=== PATIENT | female | born 1970 | race American Indian/Alaskan Native ===

== ENCOUNTER 2019-03-11 23:24 | Inpatient (IN) | payer OTHER ==
[2019-03-12 00:55] LABS: Bilirubin,Urine NEG (Negative); Blood,Urine NEG (Negative); Color,Urine Yellow (Yellow); Mucus,Urine FEW /HPF; Protein,Urine <15 mg/dL mg/dL (Negative); Urobilinogen,Urine < 2.0 mg/dL (<2.0); WBC,Urine < 1.0 /HPF (0.0-6.0)
[2019-03-12] MEDS ORDERED: TYLENOL ONE (01:00)
[2019-03-12 01:06] LABS: HCG Qualitative,Urine Negative (Negative)
[2019-03-12] MEDS: NACL 0.9% 1000 ML 1,000 ML IV ONE ×2 (01:08→01:57)
[2019-03-12] MEDS ORDERED: TYLENOL PO ONE (01:09)
[2019-03-12] MEDS ORDERED: NACL 0.9% 1000 ML IV ONE (01:35)
[2019-03-12] MEDS ORDERED: ZOSYN/NS 4.5GM/100ML 4.5 GM/100 ML VIAL IV ONE ×2 (01:37→06:29)
--- NOTE | 2019-03-12 01:42 | Emergency Department Report ---
- General Chief complaint: Dizziness Stated complaint: DIZZINESS/WEAKNESS Time Seen by Provider: 03/12/19 00:21 Source: patient, family Mode of arrival: Ambulatory Limitations: No Limitations - History of Present Illness Initial comments: 48-year-old female presents to ED with generalized weakness and chills that started tonight. Patient also reports history of constipation, and states that she often strains during defecation and notices drops of blood in her stool. Patient states today there was more blood than usual during her bowel movement. Patient denies headache, nausea, vomiting, cough, sore throat, diarrhea. Patient reports very mild lower abdominal pain, denies dysuria or frequency, vaginal bleeding or discharge. MD Complaint: generalized weakness -: This evening Location: generalized Severity: moderate Severity scale (0 -10): 0 Consistency: constant Improves with: none Worsens with: none Associated Symptoms: fever/chills. denies: chest pain, dark stools, dysuria, headaches, nausea/vomiting, myalgias, shortness of breath, syncope - Related Data Allergies Allergy/AdvReac Type Severity Reaction Status Date / Time No Known Allergies Allergy Unverified 03/11/19 23:50 ED Review of Systems ROS: Stated complaint: DIZZINESS/WEAKNESS Other details as noted in HPI Comment: All other systems reviewed and negative Constitutional: chills, fever ENT: denies: throat pain Respiratory: denies: cough, shortness of breath Cardiovascular: denies: chest pain Gastrointestinal: abdominal pain, constipation, hematochezia. denies: nausea, vomiting, diarrhea Genitourinary: denies: dysuria, frequency, discharge Neurological: denies: headache ED Past Medical Hx - Past Medical History Previous Medical History?: Yes Additional medical history: Anemia - Surgical History Past Surgical History?: Yes Additional Surgical History: Tubal Ligation, Back - Social History Smoking Status: Never Smoker Substance Use Type: None ED Physical Exam - General Limitations: No Limitations General appearance: alert, in no apparent distress - Head Head exam: Present: atraumatic, normocephalic - Eye Eye exam: Present: normal appearance, PERRL, EOMI - ENT ENT exam: Present: mucous membranes moist - Neck Neck exam: Present: normal inspection - Respiratory Respiratory exam: Present: normal lung sounds bilaterally. Absent: respiratory distress - Cardiovascular Cardiovascular Exam: Present: normal rhythm, tachycardia - GI/Abdominal GI/Abdominal exam: Present: soft. Absent: distended, tenderness - Rectal Rectal exam: Present: other (brown stool with a drop of bright red blood present) - Extremities Exam Extremities exam: Present: normal inspection - Back Exam Back exam: Present: normal inspection, full ROM - Neurological Exam Neurological exam: Present: alert, oriented X3, CN II-XII intact. Absent: motor sensory deficit - Psychiatric Psychiatric exam: Present: normal affect, normal mood - Skin Skin exam: Present: warm, dry, intact, normal color. Absent: rash ED Course Vital Signs 03/11/19 03/12/19 03/12/19 23:37 01:00 01:10 Temperature 98.6 F 100.9 F H Pulse Rate 103 H 91 H Respiratory 18 25 H Rate Blood Pressure 108/67 93/52 O2 Sat by Pulse 96 Oximetry 03/12/19 03/12/19 03/12/19 01:46 02:00 03:00 Temperature Pulse Rate 95 H 96 H 88 Respiratory 28 H 24 24 Rate Blood Pressure 93/60 97/64 97/64 O2 Sat by Pulse 98 97 Oximetry 03/12/19 04:00 Temperature Pulse Rate 76 Respiratory 14 Rate Blood Pressure 102/66 O2 Sat by Pulse Oximetry ED Medical Decision Making - Lab Data Result diagrams: 03/11/19 00:00 03/11/19 00:00 - Radiology Data Radiology results: report reviewed, image reviewed - Medical Decision Making 48-year-old female presents to ED with fever, chills, generalized weakness. Patient found to be febrile with a temp of 100.9, also hypotensive systolic blood pressures in the 90s. WBCs 13.9. Lactic acid is normal. Patient reported mild abdominal pain, however. UA is normal, also CT abdomen and pelvis is unremarkable for any acute findings. Chest x-ray is also normal. Patient reported some rectal bleeding with straining during hard stool, however hemoglobin is normal, and rectal exam did not reveal any significant blood present, only small drop. Blood and urine cultures were drawn due to fever and hypotension. Patient given one dose of Zosyn. Blood pressure has improved somewhat with fluid administration. Current blood pressure of 102/66. Will admit to hospitalist for further management. Critical care attestation.: If time is entered above; I have spent that time in minutes in the direct care of this critically ill patient, excluding procedure time. ED Disposition Clinical Impression: Fever, Hypotension Disposition: DC-09 OP ADMIT IP TO THIS HOSP Is pt being admited?: Yes Condition: Stable Referrals: JOSÉ MIGUEL NEIL MD [Primary Care Provider] - 3-5 Days Time of Disposition: 03:46
[2019-03-12 02:22] LABS: Alanine Aminotransferase 22 units/L (7-56); Bilirubin,Direct < 0.2 mg/dL (0-0.2)
--- NOTE | 2019-03-12 02:51 | Cat Scan Report ---
CT ABDOMEN AND PELVIS WITH CONTRAST HISTORY: fever, abdominal pain, weakness, dizziness. COMPARISON: None. TECHNIQUE: CT images of the abdomen and pelvis were obtained following administration of intravenous contrast. All CT scans at this location are performed using CT dose reduction for ALARA by means of automated exposure control. CONTRAST: 100 ml of intravenous contrast administered. FINDINGS: Lungs/bones: The lung bases are clear. There is no acute osseous abnormality. Postoperative changes are seen in the lumbosacral spine with no gross hardware complication identified. Abdomen/pelvis: The liver, gallbladder, spleen, pancreas, adrenals, left kidney, and proximal GI tra ct appear unremarkable. The right kidney is lobulated and there is a parenchymal calcification measur ing 2 mm in the lower pole. The urinary bladder and reproductive organs are unremarkable with no pelvic free fluid and no acute c olonic abnormality identified. The terminal ileum and appendix appear unremarkable. IMPRESSION: 1. No acute abnormality identified. 2. Incidental findings as above. Signer Name: Frank Win MD Signed: 03/12/2019 2:46 AM Workstation Name: [id number]
[2019-03-12] MEDS ORDERED: TYLENOL PO PRN (03:53)
[2019-03-12] MEDS ORDERED: ZOFRAN IV PRN (03:53)
[2019-03-12] MEDS ORDERED: PERCOCET 5/325 PO PRN (03:53)
[2019-03-12] MEDS ORDERED: SODIUM CHLORIDE FLUSH SYRINGE 10 ML IV PRN (03:53)
--- NOTE | 2019-03-12 04:07 | History and Physical Report ---
<SOSA DAVIES - Last Filed: 03/12/19 04:48> History of Present Illness Date of examination: 03/12/19 Date of admission: 03/09/2019 Chief complaint: weakness, fever and chills History of present illness: Patient is a 48-year-old female with no prior PMHx who presents to the ER with complaints of dizziness, fever and chills 2 hours prior to coming to the ER. Patient also reported constipation and streaks of blood in her stool every time she has a BM but states that the bleeding was worse today. Patient reports fever and chills, she denies any abdominal pain, denies headache, denies recent traveling, denies ill-contacts, denies any nausea or vomiting. In the ER patient was started on antibiotic and admitted for further evaluation and treatments. Past History Past Medical History: other (constipation) Past Surgical History: Other (tubal ligation and back surgery) Social history: no significant social history Family history: no significant family history Medications and Allergies Allergies Allergy/AdvReac Type Severity Reaction Status Date / Time No Known Allergies Allergy Unverified 03/11/19 23:50 Active Meds: Active Medications Acetaminophen (Tylenol) 650 mg PO Q4H PRN PRN Reason: Pain MILD(1-3)/Fever >100.5/CORRALES Enoxaparin Sodium (Lovenox) 40 mg SUB-Q QDAY [facility] Famotidine (Pepcid) 20 mg IV BID [facility] Sodium Chloride (Nacl 0.9% 1000 Ml) 1,000 mls @ 100 mls/hr IV DIRECT [facility] Ondansetron HCl (Zofran) 4 mg IV Q8H PRN PRN Reason: Nausea And Vomiting Oxycodone/Acetaminophen (Percocet 5/325) 1 tab PO Q6H PRN PRN Reason: Pain, Moderate (4-6) Sodium Chloride (Sodium Chloride Flush Syringe 10 Ml) 10 ml IV BID [facility] Sodium Chloride (Sodium Chloride Flush Syringe 10 Ml) 10 ml IV PRN PRN PRN Reason: LINE FLUSH Review of Systems Constitutional: fever, chills, weakness Rectal: bleeding Exam - Constitutional Vitals: Temp Pulse Resp BP Pulse Ox 100.9 F H 96 H 24 97/64 97 03/12/19 01:10 03/12/19 02:00 03/12/19 02:00 03/12/19 02:00 03/12/19 02:00 General appearance: Present: no acute distress - EENT Eyes: Present: EOM intact ENT: hearing intact - Neck Neck: Present: normal ROM - Respiratory Respiratory effort: normal Respiratory: bilateral: CTA - Cardiovascular Rhythm: regular Heart Sounds: Present: S1 & S2 - Extremities Extremities: no ischemia, No edema Peripheral Pulses: within normal limits - Abdominal General gastrointestinal: Present: soft, non-tender, non-distended Female genitourinary: Present: deferred - Rectal Rectal Exam: deferred - Integumentary Integumentary: Present: clear, warm, dry - Musculoskeletal Musculoskeletal: strength equal bilaterally - Psychiatric Psychiatric: cooperative - Neurologic Neurologic: moves all extremities Results - Labs CBC & Chem 7: 03/11/19 00:00 03/11/19 00:00 Labs: Laboratory Last Values WBC 13.9 K/mm3 (4.5-11.0) H 03/11/19 00:00 RBC 3.84 M/mm3 (3.65-5.03) 03/11/19 00:00 Hgb 11.2 gm/dl (10.1-14.3) 03/11/19 00:00 Hct 34.0 % (30.3-42.9) 03/11/19 00:00 MCV 89 fl (79-97) 03/11/19 00:00 MCH 29 pg (28-32) 03/11/19 00:00 MCHC 33 % (30-34) 03/11/19 00:00 RDW 14.7 % (13.2-15.2) 03/11/19 00:00 Plt Count 277 K/mm3 (140-440) 03/11/19 00:00 Lymph % (Auto) 2.7 % (13.4-35.0) L 03/11/19 00:00 [place] % (Auto) 6.2 % (0.0-7.3) 03/11/19 00:00 Eos % (Auto) 0.1 % (0.0-4.3) 03/11/19 00:00 Baso % (Auto) 1.4 % (0.0-1.8) 03/11/19 00:00 Lymph # 0.4 K/mm3 (1.2-5.4) L 03/11/19 00:00 [place] # 0.9 K/mm3 (0.0-0.8) H 03/11/19 00:00 Eos # 0.0 K/mm3 (0.0-0.4) 03/11/19 00:00 Baso # 0.2 K/mm3 (0.0-0.1) H 03/11/19 00:00 Seg Neutrophils % 89.6 % (40.0-70.0) H 03/11/19 00:00 Seg Neutrophils # 12.5 K/mm3 (1.8-7.7) H 03/11/19 00:00 Sodium 137 mmol/L (137-145) 03/11/19 00:00 Potassium 3.9 mmol/L (3.6-5.0) 03/11/19 00:00 Chloride 100.6 mmol/L (98-107) 03/11/19 00:00 Carbon Dioxide 24 mmol/L (22-30) 03/11/19 00:00 16 mmol/L 03/11/19 00:00 BUN 13 mg/dL (7-17) 03/11/19 00:00 0.8 mg/dL (0.7-1.2) 03/11/19 00:00 Estimated GFR > 60 ml/min 03/11/19 00:00 16 % 03/11/19 00:00 Glucose 105 mg/dL (65-100) H 03/11/19 00:00 Lactic Acid 1.10 mmol/L (0.7-2.0) 03/12/19 01:47 Calcium 9.4 mg/dL (8.4-10.2) 03/11/19 00:00 0.20 mg/dL (0.1-1.2) 03/12/19 01:47 < 0.2 mg/dL (0-0.2) 03/12/19 01:47 0.0 mg/dL 03/12/19 01:47 AST 25 units/L (5-40) 03/12/19 01:47 ALT 22 units/L (7-56) 03/12/19 01:47 65 units/L (35-129) 03/12/19 01:47 7.1 g/dL (6.3-8.2) 03/12/19 01:47 4.0 g/dL (3.9-5) 03/12/19 01:47 1.3 % 03/12/19 01:47 Yellow (Yellow) 03/12/19 Unknown Clear (Clear) 03/12/19 Unknown 5.0 (5.0-7.0) 03/12/19 Unknown Ur Specific [place] 1.012 (1.003-1.030) 03/12/19 Unknown <15 mg/dl mg/dL (Negative) 03/12/19 Unknown Neg mg/dL (Negative) 03/12/19 Unknown Neg mg/dL (Negative) 03/12/19 Unknown Neg (Negative) 03/12/19 Unknown Neg (Negative) 03/12/19 Unknown Neg (Negative) 03/12/19 Unknown < 2.0 mg/dL (<2.0) 03/12/19 Unknown Ur Leukocyte Esterase Neg (Negative) 03/12/19 Unknown < 1.0 /HPF (0.0-6.0) 03/12/19 Unknown 1.0 /HPF (0.0-6.0) 03/12/19 Unknown U Epithel Cells (Auto) 4.0 /HPF (0-13.0) 03/12/19 Unknown Few /HPF 03/12/19 Unknown Urine HCG, Qual Negative (Negative) 03/12/19 Unknown Assessment and Plan Assessment and plan: 1. Acute febrile illness 2. Dizziness/weakness 3. Rectal bleeding 4. Chronic constipation 5. Mild leukocytosis Plan: Pt is admitted to [facility] Continue Zosin q8hrs IVF for hydration Miralax daily for constipation Consult GI for evaluation Blood culture pending Plan of care discussed with pt. voiced understanding Pt's condition and plan of care d/w Dr Diez Advance Directives: Yes VTE prophylaxis?: Mechanical Plan of care discussed with patient/family: Yes <OLU DIEZ - Last Filed: 03/12/19 06:00> History of Present Illness Date of admission: 03/12/19 03:53 Medications and Allergies Active Meds: Active Medications Acetaminophen (Tylenol) 650 mg PO Q4H PRN PRN Reason: Pain MILD(1-3)/Fever >100.5/CORRALES Famotidine (Pepcid) 20 mg IV BID [facility] Sodium Chloride (Nacl 0.9% 1000 Ml) 1,000 mls @ 100 mls/hr IV DIRECT [facility] Piperacillin Sod/Tazobactam Sod (Zosyn/Ns 4.5gm/100ml) 4.5 gm in 100 mls @ 200 mls/hr IV Q8HR [facility]; Protocol Ondansetron HCl (Zofran) 4 mg IV Q8H PRN PRN Reason: Nausea And Vomiting Oxycodone/Acetaminophen (Percocet 5/325) 1 tab PO Q6H PRN PRN Reason: Pain, Moderate (4-6) Sodium Chloride (Sodium Chloride Flush Syringe 10 Ml) 10 ml IV BID [facility] Sodium Chloride (Sodium Chloride Flush Syringe 10 Ml) 10 ml IV PRN PRN PRN Reason: LINE FLUSH Exam - Constitutional Vitals: Temp Pulse Resp BP Pulse Ox 100.9 F H 76 14 102/66 97 03/12/19 01:10 03/12/19 04:00 03/12/19 04:00 03/12/19 04:00 03/12/19 02:00 Results - Labs CBC & Chem 7: 03/11/19 00:00 03/11/19 00:00 Labs: Laboratory Last Values WBC 13.9 K/mm3 (4.5-11.0) H 03/11/19 00:00 RBC 3.84 M/mm3 (3.65-5.03) 03/11/19 00:00 Hgb 11.2 gm/dl (10.1-14.3) 03/11/19 00:00 Hct 34.0 % (30.3-42.9) 03/11/19 00:00 MCV 89 fl (79-97) 03/11/19 00:00 MCH 29 pg (28-32) 03/11/19 00:00 MCHC 33 % (30-34) 03/11/19 00:00 RDW 14.7 % (13.2-15.2) 03/11/19 00:00 Plt Count 277 K/mm3 (140-440) 03/11/19 00:00 Lymph % (Auto) 2.7 % (13.4-35.0) L 03/11/19 00:00 [place] % (Auto) 6.2 % (0.0-7.3) 03/11/19 00:00 Eos % (Auto) 0.1 % (0.0-4.3) 03/11/19 00:00 Baso % (Auto) 1.4 % (0.0-1.8) 03/11/19 00:00 Lymph # 0.4 K/mm3 (1.2-5.4) L 03/11/19 00:00 [place] # 0.9 K/mm3 (0.0-0.8) H 03/11/19 00:00 Eos # 0.0 K/mm3 (0.0-0.4) 03/11/19 00:00 Baso # 0.2 K/mm3 (0.0-0.1) H 03/11/19 00:00 Seg Neutrophils % 89.6 % (40.0-70.0) H 03/11/19 00:00 Seg Neutrophils # 12.5 K/mm3 (1.8-7.7) H 03/11/19 00:00 Sodium 137 mmol/L (137-145) 03/11/19 00:00 Potassium 3.9 mmol/L (3.6-5.0) 03/11/19 00:00 Chloride 100.6 mmol/L (98-107) 03/11/19 00:00 Carbon Dioxide 24 mmol/L (22-30) 03/11/19 00:00 16 mmol/L 03/11/19 00:00 BUN 13 mg/dL (7-17) 03/11/19 00:00 0.8 mg/dL (0.7-1.2) 03/11/19 00:00 Estimated GFR > 60 ml/min 03/11/19 00:00 16 % 03/11/19 00:00 Glucose 105 mg/dL (65-100) H 03/11/19 00:00 Lactic Acid 1.10 mmol/L (0.7-2.0) 03/12/19 01:47 Calcium 9.4 mg/dL (8.4-10.2) 03/11/19 00:00 0.20 mg/dL (0.1-1.2) 03/12/19 01:47 < 0.2 mg/dL (0-0.2) 03/12/19 01:47 0.0 mg/dL 03/12/19 01:47 AST 25 units/L (5-40) 03/12/19 01:47 ALT 22 units/L (7-56) 03/12/19 01:47 65 units/L (35-129) 03/12/19 01:47 7.1 g/dL (6.3-8.2) 03/12/19 01:47 4.0 g/dL (3.9-5) 03/12/19 01:47 1.3 % 03/12/19 01:47 Yellow (Yellow) 03/12/19 Unknown Clear (Clear) 03/12/19 Unknown 5.0 (5.0-7.0) 03/12/19 Unknown Ur Specific [place] 1.012 (1.003-1.030) 03/12/19 Unknown <15 mg/dl mg/dL (Negative) 03/12/19 Unknown Neg mg/dL (Negative) 03/12/19 Unknown Neg mg/dL (Negative) 03/12/19 Unknown Neg (Negative) 03/12/19 Unknown Neg (Negative) 03/12/19 Unknown Neg (Negative) 03/12/19 Unknown < 2.0 mg/dL (<2.0) 03/12/19 Unknown Ur Leukocyte Esterase Neg (Negative) 03/12/19 Unknown < 1.0 /HPF (0.0-6.0) 03/12/19 Unknown 1.0 /HPF (0.0-6.0) 03/12/19 Unknown U Epithel Cells (Auto) 4.0 /HPF (0-13.0) 03/12/19 Unknown Few /HPF 03/12/19 Unknown Urine HCG, Qual Negative (Negative) 03/12/19 Unknown Assessment and Plan Assessment and plan: 48 -year-old woman in no medical problems comes emergency room complaining of fever chills, generalized weakness. No source of infection,continue zosyn, blood pressure is improved from the hypotensive range. GI consult for BPR, hemorroids
--- NOTE | 2019-03-12 04:16 | XRay Report ---
CHEST 1 VIEW INDICATION: fever. Fever and chills for the past 2 hours. COMPARISON: None FINDINGS: Support devices: None. Heart: Within normal limits. Lungs/Pleura: No acute air space or interstitial disease. Additional findings: None. IMPRESSION: 1. No acute findings. Signer Name: Frank Win MD Signed: 03/12/2019 4:12 AM Workstation Name: [email or web address]
[2019-03-12] MEDS ORDERED: ZOSYN/NS 4.5GM/100ML 4.5 GM/100 ML VIAL IV SCH ×2 (06:00→10:00)
[2019-03-12 09:15] LABS: Hematocrit 30.6 % (30.3-42.9); Hemoglobin 10.3 gm/dl (10.1-14.3); Mean Corpuscular HGB Conc 33 % (30-34); Mean Corpuscular Volume 88 fl (79-97); Platelet Count 253 K/mm3 (140-440); Red Blood Count 3.47 M/mm3 (3.65-5.03); Red Cell Distribution Width 14.7 % (13.2-15.2)
[2019-03-12] MEDS ORDERED: LOVENOX SUB-Q SCH (10:00)
[2019-03-12] MEDS: ZOSYN/NS 4.5GM/100ML 4.5 GM/100 ML VIAL IV SCH ×2 (10:41→18:48)
[2019-03-12] MEDS: NACL 0.9% 1000 ML 1,000 ML IV SCH ×2 (10:41→20:52)
[2019-03-12] MEDS: PEPCID IV SCH ×2 (10:42→21:25)
[2019-03-12] MEDS: SODIUM CHLORIDE FLUSH SYRINGE 10 ML IV SCH (10:42)
[2019-03-12] MEDS: MIRALAX 3350 PO SCH (10:42)
--- NOTE | 2019-03-12 11:37 | Gastroenterology Consultation ---
History of Present Illness - Reason for Consult Consult date: 03/12/19 rectal bleeding Requesting physician: SOSA DAVIES - History of Present Illness This is a 48 yo female with no significant PMH admitted overnight for rectal bleeding. She reports having intermittent blood per rectum with wiping after straining for about 1 week or so but yesterday her bleeding became worse with larger amount. She has chronic constipation and has been having hard stools with straining. No abdominal pain, nausea/vomiting. She has lost 10 lbs or so with trying to lose weight with diet and exercise. She had CT abdomen/pelvis in the ED which was unremarkable. Hgb at 11 in the ED and 10 this morning. Medication list updated and reviewed Past History Past Medical History: other (constipation) Past Surgical History: Other (tubal ligation and back surgery) Social history: no significant social history Family history: no significant family history Medications and Allergies Allergies Allergy/AdvReac Type Severity Reaction Status Date / Time No Known Allergies Allergy Unverified 03/11/19 23:50 Active Meds: Active Medications Acetaminophen (Tylenol) 650 mg PO Q4H PRN PRN Reason: Pain MILD(1-3)/Fever >100.5/CORRALES Docusate Sodium (Colace) 100 mg PO BID [facility] Famotidine (Pepcid) 20 mg IV BID [facility] Last Admin: 03/12/19 10:42 Dose: 20 mg Documented by: Sodium Chloride (Nacl 0.9% 1000 Ml) 1,000 mls @ 100 mls/hr IV DIRECT [facility] Last Admin: 03/12/19 10:41 Dose: 100 mls/hr Documented by: Piperacillin Sod/Tazobactam Sod (Zosyn/Ns 4.5gm/100ml) 4.5 gm in 100 mls @ 200 mls/hr IV Q8H [facility]; Protocol Last Admin: 03/12/19 10:41 Dose: 200 mls/hr Documented by: Ondansetron HCl (Zofran) 4 mg IV Q8H PRN PRN Reason: Nausea And Vomiting Oxycodone/Acetaminophen (Percocet 5/325) 1 tab PO Q6H PRN PRN Reason: Pain, Moderate (4-6) Polyethylene Glycol (Miralax 3350) 17 gm PO QDAY [facility] Last Admin: 03/12/19 10:42 Dose: 17 gm Documented by: Sodium Chloride (Sodium Chloride Flush Syringe 10 Ml) 10 ml IV BID [facility] Last Admin: 03/12/19 10:42 Dose: 10 ml Documented by: Sodium Chloride (Sodium Chloride Flush Syringe 10 Ml) 10 ml IV PRN PRN PRN Reason: LINE FLUSH Review of Systems - Review of Systems All systems: negative Constitutional: weight loss Cardiovascular: no chest pain Respiratory: no cough Gastrointestinal: constipation, BRBPR, no abdominal pain, no nausea, no vomiting, no diarrhea, no melena Exam - Constitutional Vital Signs: Temp Pulse Resp BP Pulse Ox 98.1 F 69 16 115/64 98 03/12/19 06:46 03/12/19 06:46 03/12/19 06:46 03/12/19 06:46 03/12/19 06:46 General appearance: no acute distress, well-nourished - EENT Eyes: EOM intact ENT: hearing intact, clear oral mucosa - Neck Neck: supple - Respiratory Respiratory effort: normal Respiratory: bilateral: CTA - Cardiovascular Rhythm: regular Heart Sounds: Present: S1 & S2 - Gastrointestinal General gastrointestinal: Present: soft, non-tender, non-distended, normal bowel sounds Rectal Exam: normal rectal tone, hemorrhoids, no stool bloody, other (Small external hemorrhoids without bleeding, no rectal mass lesions palpated, no blood noted) - Integumentary Integumentary: Present: clear, warm - Neurologic Neurological: alert and oriented x3 - Labs CBC & Chem 7: 03/12/19 08:51 03/11/19 00:00 Lab Results: Laboratory Results - last 24 hr 03/11/19 03/11/19 03/12/19 00:00 00:00 01:47 WBC 13.9 H RBC 3.84 Hgb 11.2 Hct 34.0 MCV 89 MCH 29 MCHC 33 RDW 14.7 Plt Count 277 Lymph % (Auto) 2.7 L [facility] % (Auto) 6.2 Eos % (Auto) 0.1 Baso % (Auto) 1.4 Lymph # 0.4 L [facility] # 0.9 H Eos # 0.0 Baso # 0.2 H Seg Neutrophils % 89.6 H Seg Neutrophils # 12.5 H Sodium 137 Potassium 3.9 Chloride 100.6 Carbon Dioxide 24 Anion Gap 16 BUN 13 Creatinine 0.8 Estimated GFR > 60 BUN/Creatinine Ratio 16 Glucose 105 H Lactic Acid 1.10 Calcium 9.4 Total Bilirubin Direct Bilirubin Indirect Bilirubin AST ALT Alkaline Phosphatase Total Protein Albumin Albumin/Globulin Ratio Urine Color Urine Turbidity Urine pH Ur Specific [place] Urine Protein Urine Glucose (UA) Urine Ketones Urine Blood Urine Nitrite Urine Bilirubin Urine Urobilinogen Ur Leukocyte Esterase Urine WBC (Auto) Urine RBC (Auto) U Epithel Cells (Auto) Urine Mucus Urine HCG, Qual 03/12/19 03/12/19 03/12/19 01:47 08:51 Unknown WBC 11.9 H RBC 3.47 L Hgb 10.3 Hct 30.6 MCV 88 MCH 30 MCHC 33 RDW 14.7 Plt Count 253 Lymph % (Auto) [facility] % (Auto) Eos % (Auto) Baso % (Auto) Lymph # [facility] # Eos # Baso # Seg Neutrophils % Seg Neutrophils # Sodium Potassium Chloride Carbon Dioxide Anion Gap BUN Creatinine Estimated GFR BUN/Creatinine Ratio Glucose Lactic Acid Calcium Total Bilirubin 0.20 Direct Bilirubin < 0.2 Indirect Bilirubin 0.0 AST 25 ALT 22 Alkaline Phosphatase 65 Total Protein 7.1 Albumin 4.0 Albumin/Globulin Ratio 1.3 Urine Color Yellow Urine Turbidity Clear Urine pH 5.0 Ur Specific [place] 1.012 Urine Protein <15 mg/dl Urine Glucose (UA) Neg Urine Ketones Neg Urine Blood Neg Urine Nitrite Neg Urine Bilirubin Neg Urine Urobilinogen < 2.0 Ur Leukocyte Esterase Neg Urine WBC (Auto) < 1.0 Urine RBC (Auto) 1.0 U Epithel Cells (Auto) 4.0 Urine Mucus Few Urine HCG, Qual Negative Assessment and Plan 48 yo female with no significant PMH admitted overnight for rectal bleeding. # Rectal bleeding - likely 2/2 anorectal origin with hemorrhoids in the setting of constipation and straining. - no signs of active bleeding at this time. - CT a/p unremarkable. Rec: - recommend bowel regimen with miralax and colace daily. - follow up with GI clinic outpatient closely with plans for colonoscopy as outpatient. contact information given to patient. - Return precautions including recurrent bleeding, abdominal pain given to the patient.
--- NOTE | 2019-03-12 15:11 | Event Note ---
Date: 03/12/19 patient seen and examined admitted for fever, lightheadedness and rectal bleed h/h stable, Cx in progress, per GI no endoscopy unless any further active bleeding noted cont current mx and plan
[2019-03-12] MEDS: COLACE PO SCH ×2 (15:27→21:25)
[2019-03-13] MEDS: ZOSYN/NS 4.5GM/100ML 4.5 GM/100 ML VIAL IV SCH (02:20)
[2019-03-13 07:12] LABS: Basophils # (Auto) 0.1 K/mm3 (0.0-0.1); Basophils % (Auto) 1.7 % (0.0-1.8); Eosinophils # (Auto) 0.1 K/mm3 (0.0-0.4); Eosinophils % (Auto) 3.3 % (0.0-4.3); Hematocrit 30.9 % (30.3-42.9); Hemoglobin 10.4 gm/dl (10.1-14.3); Lymphocytes # (Auto) 0.9 K/mm3 (1.2-5.4); Lymphocytes % (Auto) 21.3 % (13.4-35.0); Mean Corpuscular HGB Conc 34 % (30-34); Mean Corpuscular Volume 88 fl (79-97); Monocytes # (Auto) 0.6 K/mm3 (0.0-0.8); Monocytes % (Auto) 14.6 % (0.0-7.3); Platelet Count 245 K/mm3 (140-440); Red Blood Count 3.51 M/mm3 (3.65-5.03); Red Cell Distribution Width 14.8 % (13.2-15.2)
[2019-03-13] MEDS: NACL 0.9% 1000 ML 1,000 ML IV SCH (08:49)
[2019-03-13] MEDS: MIRALAX 3350 PO SCH (09:28)
[2019-03-13] MEDS: SODIUM CHLORIDE FLUSH SYRINGE 10 ML IV SCH (09:28)
[2019-03-13] MEDS: COLACE PO SCH (09:28)
[2019-03-13] MEDS: PEPCID IV SCH (09:28)
--- NOTE | 2019-03-13 12:18 | Discharge Summary ---
Providers - Providers Date of Admission: 03/12/19 03:53 Date of discharge: 03/13/19 Attending physician: VLAD SPAULDING 03/12/19 05:34 Consult to Physician [CONS] Routine Comment: Consulting Provider: DUSTIN KANG Physician Instructions: Reason For Exam: Constipation, GIB Primary care physician: JOSÉ MIGUEL NEIL Hospitalization Condition: Stable Disposition: DC-01 TO HOME OR SELFCARE Time spent for discharge: 32 min Core Measure Documentation - Palliative Care Palliative Care/ Comfort Measures: Not Applicable - Core Measures Any of the following diagnoses?: none Exam - Constitutional Vitals: Temp Pulse Resp BP Pulse Ox 98.6 F 63 18 106/57 98 03/13/19 06:38 03/12/19 17:41 03/13/19 04:00 03/12/19 17:41 03/12/19 17:41 General appearance: Present: no acute distress, well-nourished - EENT Eyes: Present: PERRL, EOM intact - Neck Neck: Present: supple, normal ROM - Respiratory Respiratory effort: normal Respiratory: negative: rales, rhonchi, wheezing - Cardiovascular Rhythm: regular Heart Sounds: Present: S1 & S2 - Extremities Extremities: no ischemia, No edema - Abdominal General gastrointestinal: Present: soft, non-tender, non-distended, normal bowel sounds - Integumentary Integumentary: Present: clear, warm - Musculoskeletal Musculoskeletal: strength equal bilaterally - Psychiatric Psychiatric: appropriate mood/affect, cooperative - Neurologic Neurologic: moves all extremities Plan Activity: no restrictions Diet: regular Additional Instructions: If you notices any significant rectal bleeding, contact M.D. or go to emergency room Follow up with: JOSÉ MIGUEL NEIL MD [Primary Care Provider] - 3-5 Days MIN,CARA DE PAZ MD [Staff Physician] - 7 Days Prescriptions: Docusate Sodium [Colace CAP] 100 mg PO BID PRN #30 capsule PRN Reason: Constipation Polyethylene Glycol 3350 [Miralax 3350] 17 gm PO QDAY 30 Days powd.pack
[2019-03-13 12:23] VITALS: BP 114/70
== END 2019-03-13 14:20 | disposition home or self-care (01) | DRG 315 ==
LOC: ED 23:24 → 3A 03-12 03:53
PROVIDERS: ADMIT Internal Medicine; ATTEND Internal Medicine
DX: I95.9 Hypotension, unspecified (principal); K62.5 Hemorrhage of anus and rectum; K59.09 Other constipation; K64.9 Unspecified hemorrhoids; Z98.51 Tubal ligation status
CPT/HCPCS: 36415; 71045; 74177; 80048; 80076; 81001; 81025; 82140; 85025; 85027; 87040; 87086; 93005; 93010; G0378; J2543; J7030; Q9967